=== PATIENT | female | born 1950 | race American Indian/Alaskan Native ===

== ENCOUNTER 2018-06-07 12:09 | Outpatient (CLI) | payer MEDICARE, OTHER | END 2018-06-07 12:10 | disposition home or self-care (01) | LOC: LAB 12:09 | PROVIDERS: ATTEND Specialist | DX: G31.84 Mild cognitive impairment of uncertain or unknown etiology (principal); Z88.6 Allergy status to analgesic agent | CPT/HCPCS: 36415; 86780 ==